=== PATIENT | male | born 1970 | race Caucasian/White ===

== ENCOUNTER 2016-06-14 14:45 | Emergency (ER) | payer MEDICARE, MEDICAID ==
[2016-06-14] MEDS ORDERED: DUONEB INH ONE ×2 (16:36)
== END 2016-06-14 18:10 | disposition home or self-care (01) ==
LOC: ER 14:45
DX: J20.9 Acute bronchitis, unspecified (principal); F17.200 Nicotine dependence, unspecified, uncomplicated
CPT/HCPCS: 36415; 71020; 80053; 82553; 83880; 84484; 85025; 93005; 94640